=== PATIENT | female | born 1955 | race Caucasian/White ===

== ENCOUNTER → 2019-11-13 | Outpatient (CLI) | payer OTHER ==
--- NOTE | 2019-11-13 15:11 | MR ---
EXAMINATION TYPE: MR brain wo con DATE OF EXAM: 11/13/2019 COMPARISON: NONE HISTORY: Mini Stroke, Hx of Carotid Artery Surgery, CVA TECHNIQUE: Multiplanar, multisequence images of the brain and brainstem is performed without IV contrast. FINDINGS: Diffusion weighted images demonstrate no evidence of a recent infarct or other diffusion ab normality. There is no extra-axial fluid collection. Subcentimeter foci of T2/FLAIR hyperintensity a re seen predominantly within the deep and subcortical white matter near the vertex with few periventr icular changes. The ventricular system and cisternal spaces are normal in size and appearance. Small area of encephalomalacia in the left frontal lobe is seen. Midline structures demonstrate normal morphology. The craniocervical junction appears within normal limits. Right carotid intracranial flow voids is not entirely maintained and will be evaluated on the MRA head of the same date. The dural venous sinuses appear patent. The visualized sinuses demonstrat e mild mucosal thickening of the left superior ethmoid and left frontal sinuses near the frontal rece ss. IMPRESSION: 1. Small area of encephalomalacia in the left frontal lobe from prior infarct/injury. No acute infarc t or midline shift. 2. Overall mild burden nonspecific white matter change, most commonly on the basis of microangiopathy particularly given the distribution. 3. Incomplete flow void of the right internal carotid artery will be evaluated on the MRA brain of e same date. Occlusion suspected. 4. Mild left frontal and ethmoid paranasal sinus disease.
--- NOTE | 2019-11-13 15:52 | MR ---
EXAMINATION TYPE: MR angio head wo/neck wo/w con DATE OF EXAM: 11/13/2019 COMPARISON: MR brain of the same date HISTORY: Mini Stroke, Hx of Carotid Artery Surgery, CVA TECHNIQUE: Time of flight images focusing on the [place] of [place] were performed without contrast.. 2-D and 3-D postprocessing imaging is performed. FINDINGS: The proximal left common carotid artery is unremarkable however located approximately 7 cm from the a ortic arch the [place] lumen becomes extremely narrow with stenosis of greater than 90% appearing as t he string sign of dissection. Additional lumen, possibly postsurgical change or poststenotic dilatati on is seen measuring up to 1.0 cm measuring a distance of 1.5 cm as opposed to the prestenotic calibe r of the left common carotid artery of 0.5 cm. Thereafter the left common carotid artery appears mild ly dilated but patent. Focal areas of 50-60% stenosis are seen at the level of C2. The right common carotid artery is patent without hemodynamically significant stenosis however beginn ing at the carotid bulb the right internal carotid artery is completely occluded. The vertebral arter ies appear patent and codominant. The transverse portion, cavernous portion and supraclinoid portion of the left internal carotid artery is patent as is the vertebrobasilar system. However there is dimi nutive size of the left internal carotid artery. Posterior cerebral arteries are patent without steno sis or aneurysmal dilatation. Patent posterior communicating arteries are seen bilaterally as well as continued anterior communicating artery. There is a 2 mm aneurysm of the anterior communicating artery that appears saccular. IMPRESSION: 1. 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 2. Severe greater than 90% stenosis of the left common carotid artery poststenotic dilatation (lumina l caliber doubling in size from the prestenotic size). In this patient with history of carotid endart erectomy the origin of postsurgical change. 3. 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 Findings communicated with the ordering provider Mary Jo Ascencio and Dr. Toussaint by Dr. Cope at 1540 on 11/13/19.
== END | disposition home or self-care (01) ==
LOC: RADMRIMAIN 13:29
PROVIDERS: ATTEND Nurse Practitioner Family
DX: G93.89 Other specified disorders of brain (principal); R90.89 Other abnormal findings on diagnostic imaging of central nervous system; I73.9 Peripheral vascular disease, unspecified; I65.21 Occlusion and stenosis of right carotid artery; I65.22 Occlusion and stenosis of left carotid artery; I72.0 Aneurysm of carotid artery; Z98.890 Other specified postprocedural states
CPT/HCPCS: 70544; 70549; 70551; A9585